=== PATIENT | female | born 1975 | race Caucasian/White ===

== ENCOUNTER → 2022-05-19 | Outpatient (CLI) | payer OTHER ==
[~2022-05-19] MED LIST: CIPROFLOXACIN500 MG PO; FLEXERIL10 MG PO; MOTRIN800 MG PO; NKHM; TRAMADOL HCL50 MG PO; ULTRAM50 MG PO; VICODIN 5/500 505 MG PO
== END ==
LOC: RAD 11:29
PROVIDERS: ATTEND Chiropractor
DX: M25.512 Pain in left shoulder (principal)